=== PATIENT | female | born 1955 | race Hispanic/Latino ===

== ENCOUNTER 2016-12-13 14:33 | Emergency (ER) | payer SELFPAY ==
--- NOTE | 2016-12-13 17:34 | XRay Report ---
FINAL REPORT EXAM: XRAY KNEE COMPLETE LEFT HISTORY: pain TECHNIQUE: Left knee three views PRIORS: None. FINDINGS: No fracture is identified. No dislocation seen. No evidence of joint effusion. Patella demonstrates normal positioning. No acute bony abnormality identified. IMPRESSION: Negative knee series
[2016-12-13] MEDS ORDERED: ZOFRAN IM ONE (23:31)
[2016-12-13] MEDS ORDERED: MORPHINE IM ONE (23:31)
[2016-12-13] MEDS ORDERED: ZESTRIL PO ONE (23:32)
--- NOTE | 2016-12-13 23:36 | Emergency Department Report ---
ED Fall HPI - General Chief Complaint: Extremity Injury, Lower Stated Complaint: FALL/ KNEE PAIN Time Seen by Provider: 12/13/16 23:25 Source: patient Mode of arrival: Ambulatory - History of Present Illness Initial Comments: 61-year-old female presents here with complaints of pain in both legs. This has been going on for about a week. Patient is status post falling a week ago. Has been having pain in both knees since then. Pain in both lower limbs is not getting any better" and thus, pt came to ER to be evaluated by her history is significant for liver cirrhosis, diabetes mellitus, hypertension, history of brain tumor MD Complaint: fall (on both knees about 1 week ago) Place Fall Occurred: home Loss of Consciousness: none Prolonged Down Time?: no Symptoms Prior to Fall: none Location: other (both knees and both lower legs) Location - Extremities: Left: Knee, Leg, Ankle, Foot, Right: Knee, Leg, Ankle, Foot Severity: moderate Severity scale (0 -10): 8 Quality: aching Associated Symptoms: weakness, unable to walk. denies: headache, neck pain, numbness, chest paint, shortness of breath, abdominal pain, hematuria, lightheaded, vertigo, confusion - Related Data Home Medications Medication Instructions Recorded Confirmed Last Taken Cyclobenzaprine HCl [FLEXERIL] 10 mg PO QDAY 02/02/13 01/04/14 01/03/14 11:30 Insulin Pump Controller [Snap 0 unit SC QID 02/02/13 01/02/14 02/02/13 Insulin Pump Controller] Lisinopril [Zestril TAB] 10 mg PO QDAY 02/02/13 01/02/14 02/01/13 Meloxicam [Mobic] 7.5 mg PO BID 02/02/13 01/04/14 01/03/14 10:00 Furosemide [Lasix] 40 mg PO DAILY 01/02/14 01/04/14 01/03/14 14:00 Insulin Lispro [Humalog] 0 unit SQ QID 01/02/14 01/02/14 Unknown Losartan [Cozaar] 50 mg PO QDAY 01/02/14 01/04/14 01/04/14 08:30 Metoprolol Xl [Toprol Xl] 25 mg PO BID 11/11/14 11/13/14 11/13/14 08:30 Promethazine [Phenergan] 25 mg PO Q4-6H PRN 01/02/14 01/04/14 01/04/14 08:30 Previous Rx's Medication Instructions Recorded Last Taken Type HYDROcodone/ACETAMINOPHEN [[place] 1 each PO Q6H PRN #12 tablet 12/14/16 Unknown Rx 5-325 Tablet] Allergies Allergy/AdvReac Type Severity Reaction Status Date / Time sulfamethoxazole AdvReac Unknown Verified 12/13/16 14:39 [From Bactrim] trimethoprim [From Bactrim] AdvReac Unknown Verified 12/13/16 14:39 ED Review of Systems ROS: Stated complaint: FALL/ KNEE PAIN Other details as noted in HPI Comment: All other systems reviewed and negative Constitutional: malaise, weakness. denies: chills, diaphoresis, fever Eyes: denies: eye pain, eye discharge, vision change ENT: denies: ear pain, throat pain, dental pain, hearing loss, epistaxis Respiratory: shortness of breath. denies: cough, orthopnea, SOB with exertion, SOB at rest Cardiovascular: denies: chest pain, palpitations, dyspnea on exertion, orthopnea , edema, syncope, paroxysmal nocturnal dyspnea Endocrine: no symptoms reported Gastrointestinal: denies: abdominal pain, nausea, vomiting, diarrhea, constipation, hematemesis Genitourinary: denies: dysuria, frequency, hematuria Musculoskeletal: joint swelling (both knees and both ankles), arthralgia, myalgia, other (bruises seen both lower limbs, extending from both knees to both feet) Skin: as per HPI, other (bruises seen both lower limbs) Neurological: weakness ED Past Medical Hx - Past Medical History Hx Hypertension: Yes (FOR 12 YRS, took metoprolol this am, lisinopril, losartain ) Hx Diabetes: Yes (FOR 5 YRS) Hx Arthritis: Yes Hx Headaches / Migraines: Yes (CHRONIC MIGRAINES) Hx Asthma: Yes (uses nebulizer once a month) Additional medical history: Brain tumor, kidney/bladder problems - Surgical History Hx Cholecystectomy: Yes Additional Surgical History: Bladder surgery - Social History Smoking Status: Never Smoker Substance Use Type: None - Medications Home Medications: Home Medications Medication Instructions Recorded Confirmed Last Taken Type Cyclobenzaprine HCl [FLEXERIL] 10 mg PO QDAY 02/02/13 01/04/14 01/03/14 11:30 History Insulin Pump Controller [Snap 0 unit SC QID 02/02/13 01/02/14 02/02/13 History Insulin Pump Controller] Lisinopril [Zestril TAB] 10 mg PO QDAY 02/02/13 01/02/14 02/01/13 History Meloxicam [Mobic] 7.5 mg PO BID 02/02/13 01/04/14 01/03/14 10:00 History Furosemide [Lasix] 40 mg PO DAILY 01/02/14 01/04/14 01/03/14 14:00 History Insulin Lispro [Humalog] 0 unit SQ QID 01/02/14 01/02/14 Unknown History Losartan [Cozaar] 50 mg PO QDAY 01/02/14 01/04/14 01/04/14 08:30 History Metoprolol Xl [Toprol Xl] 25 mg PO BID 01/02/14 01/04/14 01/04/14 08:30 History Promethazine [Phenergan] 25 mg PO Q4-6H PRN 01/02/14 01/04/14 01/04/14 08:30 History HYDROcodone/ACETAMINOPHEN [[place] 1 each PO Q6H PRN #12 tablet 12/14/16 Unknown Rx 5-325 Tablet] ED Physical Exam - General Limitations: No Limitations General appearance: alert, in distress ([id number] distress) - Head Head exam: Present: atraumatic, normocephalic, normal inspection - Eye Eye exam: Present: PERRL, EOMI, scleral icterus - ENT ENT exam: Present: normal exam, normal orophraynx, mucous membranes moist - Neck Neck exam: Present: normal inspection, full ROM, lymphadenopathy. Absent: tenderness, meningismus - Respiratory Respiratory exam: Present: rales (bibasilar regions), decreased breath sounds ( bibasilar regions), prolonged expiratory - Cardiovascular Cardiovascular Exam: Present: regular rate, normal rhythm, S3 - GI/Abdominal GI/Abdominal exam: Present: soft, distended (obese abdomen), normal bowel sounds. Absent: organomegaly, mass, bruit, pulsatile mass - Rectal Rectal exam: Present: deferred - Expanded Lower Extremity Exam Left Hip exam: Present: normal inspection, full ROM. Absent: tenderness, swelling, laceration, ecchymosis, deformity Upper Leg exam: Present: tenderness, ecchymosis (Bruises Seen) Knee exam: Present: tenderness, swelling, ecchymosis (bruises seen with knees), effusion Lower Leg exam: Present: tenderness, swelling, ecchymosis (bruises seen both legs) Ankle exam: Present: tenderness, swelling, ecchymosis (bruises in both ankles) Foot/Toe exam: Present: tenderness, swelling, ecchymosis Neuro vascular tendon exam: Present: no vascular compromise. Absent: pulse deficit, abnormal cap refill, motor deficit, sensory deficit, tendon deficit, extremity cold to touch - Back Exam Back exam: Present: normal inspection, full ROM. Absent: tenderness, CVA tenderness (L) - Neurological Exam Neurological exam: Present: alert, oriented X3, CN II-XII intact, motor sensory deficit ED Course Vital Signs 12/13/16 12/13/16 12/14/16 14:39 23:00 00:00 Temperature 98.1 F 98 F Pulse Rate 98 H 78 78 Respiratory 18 16 Rate Blood Pressure 232/100 223/80 Blood Pressure 223/80 [Left] O2 Sat by Pulse 98 100 Oximetry 12/14/16 12/14/16 12/14/16 00:44 01:14 01:28 Temperature Pulse Rate 86 90 Respiratory 16 16 16 Rate Blood Pressure Blood Pressure 191/87 176/79 [Left] O2 Sat by Pulse 100 100 Oximetry 12/14/16 12/14/16 12/14/16 02:02 02:03 02:55 Temperature Pulse Rate 86 86 88 Respiratory 16 16 Rate Blood Pressure 202/86 Blood Pressure 202/86 184/82 [Left] O2 Sat by Pulse 100 99 Oximetry 12/14/16 12/14/16 03:15 04:51 Temperature Pulse Rate 88 76 Respiratory 16 16 Rate Blood Pressure Blood Pressure 141/50 135/57 [Left] O2 Sat by Pulse 100 100 Oximetry ED Medical Decision Making - Lab Data Result diagrams: 12/14/16 02:00 12/14/16 02:00 - EKG Data 12/14/16 05:54 Normal sinus rhythm rate of 91 beats per minutes, left terry axis, ST depression in lead 1, lead 2 and lead aVL and nonspecific ST changes in V1 and V2 and V3, left ventricular hypertrophy prolonged QTc Critical Care Time: No Critical care attestation.: If time is entered above; I have spent that time in minutes in the direct care of this critically ill patient, excluding procedure time. ED Disposition Clinical Impression: Contusion of knee, left, Contusion of right knee, Poor hypertension control, History of cirrhosis of liver Disposition: DC- TO HOME OR SELFCARE Is pt being admited?: No Does the pt Need Aspirin: No Condition: Stable Instructions: Cirrhosis (ED), Ascites (ED), Hypertensive Crisis (ED), Knee Pain (ED) Additional Instructions: Comply with your antihypertensives, follow up with your primary care for further evaluation. of your hypertension. Prescriptions: HYDROcodone/ACETAMINOPHEN [[place] 5-325 Tablet] 1 each PO Q6H PRN #12 tablet PRN Reason: Pain Referrals: PRIMARY CARE, [Primary Care Provider] - 3-5 Days Time of Disposition: 06:05
[2016-12-14] MEDS ORDERED: APRESOLINE IV ONE (00:31)
[2016-12-14] MEDS ORDERED: MORPHINE ONE ×2 (00:31→00:32)
[2016-12-14] MEDS ORDERED: LASIX IV ONE (01:39)
[2016-12-14 02:44] LABS: Basophils % (Auto) 0.9 % (0.0-1.8); Eosinophils % (Auto) 2.7 % (0.0-4.3); Hematocrit 39.1 % (30.3-42.9); Hemoglobin 13.5 gm/dl (10.1-14.3); Mean Corpuscular HGB Conc 35 % (30-34); Mean Corpuscular Hemoglobin 33 pg (28-32); Mean Corpuscular Volume 95 fl (79-97); Platelet Count 123 K/mm3 (140-440); Red Blood Count 4.09 M/mm3 (3.65-5.03); Red Cell Distribution Width 14.1 % (13.2-15.2); White Blood Count 5.1 K/mm3 (4.5-11.0)
[2016-12-14 02:50] LABS: Alanine Aminotransferase 14 units/L (7-56); Albumin 3.6 g/dL (3.9-5); Albumin/Globulin Ratio 1.2 %; Alkaline Phosphatase 65 units/L (35-129); Anion Gap 19 mmol/L; BUN/Creatinine Ratio 27; Blood Urea Nitrogen 8 mg/dL (7-17); Calcium 8.7 mg/dL (8.4-10.2); Carbon Dioxide 26 mmol/L (22-30); Chloride 96.9 mmol/L (98-107); Glucose 242 mg/dL (65-100); Potassium 3.5 mmol/L (3.6-5.0); Sodium 138 mmol/L (137-145); Total Protein 6.6 g/dL (6.3-8.2)
[2016-12-14 04:53] VITALS: BP 135/57
[2016-12-14] MEDS ORDERED: FIORICET PO ONE (05:07)
--- NOTE | 2016-12-14 07:51 | XRay Report ---
BILATERAL TIBIA AND FIBULA RADIOGRAPHS INDICATION: Leg pain, post fall. COMPARISON: None similar. FINDINGS: AP and lateral bilateral tibia and fibula radiographs demonstrate intact bones. Included knee and ankle articulations appear unremarkable as well. Left medial tibial plateau 7 mm subchondral cyst medially noted. Mild diffuse lower leg soft tissue swelling/edema though suspected, moderately extending to the ankle as well. Right more than left small dorsal calcaneal spurs. Plantar left calcaneal spur as well. CONCLUSION: Intact bilateral tibia and fibula, though lower leg soft tissue swelling extending to the ankle not excluded, as described. Please correlate. Thank you for the opportunity to participate in this patient's care.
[2016-12-14] MEDS ORDERED: MAG-OX PO SCH (10:00)
== END 2016-12-14 06:20 | disposition home or self-care (01) ==
LOC: ED 14:33
DX: S80.02XA Contusion of left knee, initial encounter (principal); S80.01XA Contusion of right knee, initial encounter; I10 Essential (primary) hypertension; E11.9 Type 2 diabetes mellitus without complications; M19.90 Unspecified osteoarthritis, unspecified site; G43.909 Migraine, unspecified, not intractable, without status migrainosus; J45.909 Unspecified asthma, uncomplicated; Z79.4 Long term (current) use of insulin; Z88.1 Allergy status to other antibiotic agents; W19.XXXA Unspecified fall, initial encounter; Y93.9 Activity, unspecified; Y99.9 Unspecified external cause status; Y92.009 Unspecified place in unspecified non-institutional (private) residence as the place of occurrence of the external cause
CPT/HCPCS: 36415; 73562; 73590; 80053; 82140; 83735; 83880; 85025; 93005; 93010; 96372; 96374; 96375; 99284; J0360; J1940; J2270; J2405